=== PATIENT | female | born 1985 | race Asian ===

== ENCOUNTER 2020-06-14 08:03 | Emergency (ER) | payer SELFPAY ==
[~2020-06-14] VITALS: Ht 152.4 cm; Wt 59.1 kg
== END 2020-06-14 08:33 ==
LOC: ER 08:03
DX: M79.642 Pain in left hand (principal); Z88.2 Allergy status to sulfonamides; V87.7XXA Person injured in collision between other specified motor vehicles (traffic), initial encounter; Y93.89 Activity, other specified; Y92.488 Other paved roadways as the place of occurrence of the external cause; Y99.8 Other external cause status
CPT/HCPCS: 99283

== ENCOUNTER 2020-06-18 12:22 | Emergency (ER) | payer OTHER ==
[~2020-06-18] VITALS: Ht 149.9 cm; Wt 59.0 kg
[2020-06-18 12:40] VITALS: BP 117/78
[2020-06-18] MEDS ORDERED: LIDOcaine 5% patch TP STA (15:31)
[2020-06-18] MEDS ORDERED: ketorolac tromethamine 15mg/ml inj. IM ONE (15:35)
== END 2020-06-18 17:50 | disposition home or self-care (01) ==
LOC: ER 12:23
DX: S13.4XXA Sprain of ligaments of cervical spine, initial encounter (principal); V98.8XXA Other specified transport accidents, initial encounter; Y93.89 Activity, other specified; Y92.89 Other specified places as the place of occurrence of the external cause; Y99.8 Other external cause status
CPT/HCPCS: 96372; 99283; J1885

== ENCOUNTER 2020-06-25 13:59 | Emergency (ER) | payer OTHER ==
[~2020-06-25] VITALS: Ht 149.9 cm; Wt 61.8 kg
[2020-06-25 17:09] LABS: BASOPHILS # (AUTO) 0.1 X10'3 (0-0.2); BASOPHILS % (AUTO) 0.6 % (0-1); EOSINOPHILS # (AUTO) 0.3 X10'3 (0-0.9); EOSINOPHILS % (AUTO) 1.9 % (0-6); HEMATOCRIT 42.8 % (35.0-45.0); HEMOGLOBIN 14.3 g/dl (12.0-16.0); LYMPHOCYTES # (AUTO) 3.9 X10'3 (1.1-4.8); LYMPHOCYTES % (AUTO) 28.6 % (21-51); MEAN CORPUSCULAR HEMOGLOBIN 30.6 PG (27.0-31.0); MEAN CORPUSCULAR HGB CONC 33.4 g/dL (33.0-36.5); MEAN CORPUSCULAR VOLUME 91.6 FL (78-98); MEAN PLATELET VOLUME 7.3 FL (7.4-10.4); MONOCYTES # (AUTO) 1.2 X10'3 (0-0.9); MONOCYTES % (AUTO) 9.1 % (2-12); NEUTROPHILS # (AUTO) 8.1 X10'3 (1.8-7.7); NEUTROPHILS % (AUTO) 59.8 % (42-75); PLATELET COUNT 406 X10'3 (140-440); RED BLOOD COUNT 4.67 X10'6 (4.20-5.60); RED CELL DISTRIBUTION WIDTH 12.9 % (11.5-14.5); WHITE BLOOD COUNT 13.5 X10'3 (4.5-11.0)
[2020-06-25 17:26] LABS: ALANINE AMINOTRANSFERASE 58 U/L (12-78); ALBUMIN 4.2 G/DL (3.4-5.0); ALKALINE PHOSPHATASE 68 IU/L (46-116); ANION GAP 10 (8-16); ASPARTATE AMINO TRANSFERASE 29 U/L (10-37); BILIRUBIN,TOTAL 0.3 MG/DL (0.1-1.0); BLOOD UREA NITROGEN 11 MG/DL (7-18); BUN/CREATININE RATIO 14.7 (6.6-38.0); CALCIUM 9.2 MG/DL (8.5-10.1); CHLORIDE 103 MMOL/L (99-107); CREATININE 0.75 MG/DL (0.40-0.90); GLUCOSE 88 MG/DL (70-104); LIPASE 166 U/L (73-393); POTASSIUM 3.8 MMOL/L (3.5-5.1); SODIUM 142 MMOL/L (135-145); TOTAL CARBON DIOXIDE 29.3 MMOL/L (24-32); TOTAL PROTEIN 8.4 G/DL (6.4-8.2); eGFR 87 ML/MIN
[2020-06-25] MEDS ORDERED: cyclobenzaprine 10mg tablet PO ONE (17:30)
[2020-06-25] MEDS ORDERED: ketorolac tromethamine 15mg/ml inj. IM ONE (17:30)
[2020-06-25] MEDS ORDERED: CYCL-1 PO (17:40)
[2020-06-25] MEDS ORDERED: IBUP-1984 PO (17:40)
[2020-06-25 18:10] VITALS: BP 121/84
== END 2020-06-25 18:06 | disposition home or self-care (01) ==
LOC: ER 14:00
DX: M79.672 Pain in left foot (principal); R10.84 Generalized abdominal pain; M54.9 Dorsalgia, unspecified; Z88.2 Allergy status to sulfonamides; Z79.899 Other long term (current) drug therapy
CPT/HCPCS: 36415; 73630; 80053; 83690; 85025; 99284

== ENCOUNTER 2020-07-05 07:57 | Emergency (ER) | payer OTHER ==
[~2020-07-05] VITALS: Ht 152.4 cm; Wt 62.2 kg
[~2020-07-05 07:57] MED LIST: CYCL-1 PO
[2020-07-05 08:08] VITALS: BP 143/106
== END 2020-07-05 09:57 | disposition left against medical advice (07) ==
LOC: ER 07:57
DX: R52 Pain, unspecified (principal); Z53.21 Procedure and treatment not carried out due to patient leaving prior to being seen by health care provider

== ENCOUNTER 2020-07-07 09:36 | Emergency (ER) | payer OTHER ==
[~2020-07-07] VITALS: Ht 152.4 cm; Wt 61.8 kg
--- NOTE | 2020-07-07 11:20 | NUR ---
Transferred pt from [facility] in . Upon arrival in [facility] pt reports she needed to urinate. Pt got up from and ambulated on her own without assistance. Primary RN Shaniqua catherine.
[2020-07-07] MEDS ORDERED: ketorolac tromethamine 15mg/ml inj. IM ONE (12:05)
[2020-07-07 12:27] LABS: BASOPHILS # (AUTO) 0.1 X10'3 (0-0.2); BASOPHILS % (AUTO) 0.5 % (0-1); EOSINOPHILS # (AUTO) 0.1 X10'3 (0-0.9); EOSINOPHILS % (AUTO) 0.9 % (0-6); HEMATOCRIT 40.7 % (35.0-45.0); HEMOGLOBIN 13.6 g/dl (12.0-16.0); LYMPHOCYTES # (AUTO) 2.4 X10'3 (1.1-4.8); LYMPHOCYTES % (AUTO) 23.5 % (21-51); MEAN CORPUSCULAR HEMOGLOBIN 30.5 PG (27.0-31.0); MEAN CORPUSCULAR HGB CONC 33.4 g/dL (33.0-36.5); MEAN CORPUSCULAR VOLUME 91.3 FL (78-98); MEAN PLATELET VOLUME 7.5 FL (7.4-10.4); MONOCYTES # (AUTO) 0.8 X10'3 (0-0.9); MONOCYTES % (AUTO) 7.2 % (2-12); NEUTROPHILS % (AUTO) 67.9 % (42-75); PLATELET COUNT 373 X10'3 (140-440); RED BLOOD COUNT 4.46 X10'6 (4.20-5.60); RED CELL DISTRIBUTION WIDTH 13.3 % (11.5-14.5); WHITE BLOOD COUNT 10.4 X10'3 (4.5-11.0)
--- NOTE | 2020-07-07 12:32 | NUR ---
AFTER DRAWING UP THE TORADOL MEDICATION PT STATES SHE IS REFUSING IT. SHE DOESNT WANT ANY SHOT. PT NOW TAKEN TO CT VIA W/C
[2020-07-07 12:35] LABS: ALANINE AMINOTRANSFERASE 41 U/L (12-78); ALBUMIN 4.1 G/DL (3.4-5.0); ALKALINE PHOSPHATASE 68 IU/L (46-116); ANION GAP 12 (8-16); ASPARTATE AMINO TRANSFERASE 24 U/L (10-37); BILIRUBIN,TOTAL 0.4 MG/DL (0.1-1.0); BLOOD UREA NITROGEN 10 MG/DL (7-18); BUN/CREATININE RATIO 15.4 (6.6-38.0); CALCIUM 8.9 MG/DL (8.5-10.1); CHLORIDE 102 MMOL/L (99-107); CREATININE 0.65 MG/DL (0.40-0.90); ETHANOL < 0.010 GM/DL (0.0-0.010); GLUCOSE 98 MG/DL (70-104); POTASSIUM 3.6 MMOL/L (3.5-5.1); SODIUM 140 MMOL/L (135-145); TOTAL CARBON DIOXIDE 26.3 MMOL/L (24-32); TOTAL PROTEIN 8.2 G/DL (6.4-8.2); eGFR > 90 ML/MIN
[2020-07-07 13:46] VITALS: BP 108/88
== END 2020-07-07 13:48 | disposition home or self-care (01) ==
LOC: ER 09:36
DX: S00.83XA Contusion of other part of head, initial encounter (principal); S80.12XA Contusion of left lower leg, initial encounter; S80.11XA Contusion of right lower leg, initial encounter; S40.022A Contusion of left upper arm, initial encounter; S50.02XA Contusion of left elbow, initial encounter; S40.021A Contusion of right upper arm, initial encounter; R42 Dizziness and giddiness; Z88.2 Allergy status to sulfonamides; Z79.899 Other long term (current) drug therapy; V99.XXXA Unspecified transport accident, initial encounter; Y93.89 Activity, other specified; Y92.89 Other specified places as the place of occurrence of the external cause; Y99.8 Other external cause status
CPT/HCPCS: 36415; 70450; 80053; 80320; 85025; 99284

== ENCOUNTER 2020-07-18 20:13 | Emergency (ER) | payer OTHER ==
[~2020-07-18] VITALS: Ht 152.4 cm; Wt 61.8 kg
[2020-07-18 20:21] VITALS: BP 126/63
== END 2020-07-18 21:36 | disposition home or self-care (01) ==
LOC: ER 20:13
DX: Z02.89 Encounter for other administrative examinations (principal); M79.661 Pain in right lower leg; Z88.2 Allergy status to sulfonamides; Z79.899 Other long term (current) drug therapy
CPT/HCPCS: 99283

== ENCOUNTER 2020-08-08 06:32 | Emergency (ER) | payer OTHER ==
[~2020-08-08] VITALS: Ht 165.1 cm; Wt 59.1 kg
[2020-08-08 06:36] VITALS: BP 128/86
--- NOTE | 2020-08-08 07:45 | NUR ---
PT CAME OUT OF ER ROOM AND SAID SHE HAD TO LEAVE. PT DID NOT WAIT TO SIGN DC PAPERS
== END 2020-08-08 07:50 | disposition home or self-care (01) ==
LOC: ER 06:32
DX: M79.604 Pain in right leg (principal); M79.605 Pain in left leg; Z88.2 Allergy status to sulfonamides
CPT/HCPCS: 99283